=== PATIENT | female | born 1970 | race Two or more races ===

== ENCOUNTER 2019-02-07 15:53 | Inpatient (IN) | payer OTHER ==
[~2019-02-07] VITALS: Ht 170.2 cm; Wt 5.0 kg
[~2019-02-07 15:53] MED LIST: CODE1TAB37 PO
--- NOTE | 2019-02-07 16:09 | NUR ---
PTE INIDCA QUE TIENE DOLOR DE DIVERTICULOSIS YA QUE A SENTIDO EL DOLOR ANTERIRORMENTE Y ES IGUAL. PTE REFIERE DOLOR HACE 5 BOURNE Y NO AGUANTA MAS. PTE ALERTA CONSCIENTE Y OREINTADA X3
--- NOTE | 2019-02-07 16:54 | NUR ---
PTE EVALUADA POR EL DR MAGALLON QUIEN [place]. MS HUTTON ORIENTA SOBRE EL MISMO, LO CUAL REFIERE ENTENDER, REALIZA PRUEBAS DE LABORATORIO Y ADMINISTRA MEDICAMENTOS JACKIE ORDEN MEDICA Y SIGUIENDO MEDIDAS ASEPTICAS.
--- NOTE | 2019-02-07 23:24 | NUR ---
SE RECIBE DE TURNO ANTERIOR. PACIENTE FEMENINA. ALERTA Y ORIENTADA EN SHAMAR ESFERAS. BUEN PATRON RESPIRATORIO. PIEL TIBIA AL TACTO. CANALIZACION PATENTE, YULISA DE EDEMA Y/O ENROJECIMIENTO RECIBIENDO D5W/0.45%NSS @ 150 ML/HR. PACIENTE EN ESPERA DE CONSULTA CON DR GEORGE. SE MANTIENE BAJO OBSERVACION POR CAMBIOS.
--- NOTE | 2019-02-08 07:10 | NUR ---
SE RECIBE PACIENTE DE TURNO ANTERIOR.EN CAMA CON LAS BAR[place] ELEVADAS ESTA ALERTA Y ORIENTADA.[place] POR FAMILIAR.AREA DE VENOPUNCION ESTA LIMPIA Y SECA,YULISA DE EDEMA. ES MANTENIDA CON CABEZERA A 45 GRADOS,TIMBRE ACCESIBLE Y EN OBSERVACION KARLIE POR CAMBIOS EN CONDICION.
== END 2019-02-13 20:14 | disposition home or self-care (01) | DRG 392 ==
LOC: ER 15:53 → SURH 02-08 09:05 → SEC-K 02-08 09:05 → SURH 02-08 10:45
PROVIDERS: ADMIT Internal Medicine
DX: K57.32 Diverticulitis of large intestine without perforation or abscess without bleeding (principal)

== ENCOUNTER 2019-05-18 12:50 | Inpatient (IN) | payer OTHER ==
[~2019-05-18] VITALS: Ht 170.2 cm; Wt 75.7 kg
[2019-05-27] MEDS ORDERED: PERCOCET 5-3251 EACH PO (11:17)
[2019-05-27] MEDS ORDERED: PRILOSEC OTC20 MG PO (11:17)
[2019-05-27] MEDS ORDERED: INTESTINEX680 M1 PO (11:17)
== END 2019-05-27 12:02 | disposition home or self-care (01) | DRG 331 ==
LOC: EDSTATUS 05-20 13:15 → ADM 05-20 13:15 → SURH 05-24 04:58 → SURG 05-24 04:58 → O/R 05-24 04:58 → SURH 05-24 10:30 → SURG 05-24 11:32 → SURH 05-24 13:15 → ADM 05-24 13:15 → SURH 05-25 15:59
PROVIDERS: ADMIT Surgery
PROC: 0DJD8ZZ Inspection of Lower Intestinal Tract, Via Natural or Artificial Opening Endoscopic (ICD-10-PCS; 2019-05-24)
PROC: 0DTN4ZZ Resection of Sigmoid Colon, Percutaneous Endoscopic Approach (ICD-10-PCS; principal; 2019-05-24 10:30)
DX: K57.32 Diverticulitis of large intestine without perforation or abscess without bleeding (principal)

== ENCOUNTER 2020-07-31 08:36 | Emergency (ER) | payer OTHER ==
[~2020-07-31] VITALS: Ht 172.7 cm; Wt 78.9 kg
[~2020-07-31 08:36] MED LIST changes: +INTESTINEX680 M1 PO; +PERCOCET 5-3251 EACH PO; +PRILOSEC OTC20 MG PO
[2020-07-31] MEDS ORDERED: KETO10TA2 PO (14:56)
[2020-07-31] MEDS ORDERED: PEPCID AC20 MG PO (14:56)
[2020-07-31] MEDS ORDERED: ONDANSETRON ODT4 MG SL (14:56)
[2020-07-31] MEDS ORDERED: PYRIDIUM DS200 MG PO (14:56)
== END 2020-07-31 15:13 ==
LOC: ER 08:36
DX: N20.1 Calculus of ureter (principal); R10.11 Right upper quadrant pain; R10.31 Right lower quadrant pain; Z20.822 Contact with and (suspected) exposure to COVID-19

== ENCOUNTER 2020-09-11 08:00 | Outpatient (CLI) | payer OTHER ==
[~2020-09-11 08:00] MED LIST changes: +KETO10TA2 PO; +ONDANSETRON ODT4 MG SL; +PEPCID AC20 MG PO; +PYRIDIUM DS200 MG PO
== END 2020-09-11 08:18 | disposition home or self-care (01) ==
LOC: SONOGRAMA 08:00
PROVIDERS: ATTEND Internal Medicine Gastroenterology
DX: N83.292 Other ovarian cyst, left side (principal); N83.291 Other ovarian cyst, right side; R10.11 Right upper quadrant pain; R10.84 Generalized abdominal pain

== ENCOUNTER 2021-06-12 07:28 | Emergency (ER) | payer OTHER ==
[~2021-06-12] VITALS: Ht 172.7 cm; Wt 78.5 kg
[2021-06-12] MEDS ORDERED: LEVSIN/SL0.125 MG PO (14:10)
[2021-06-12] MEDS ORDERED: PEPCID AC20 MG PO (14:10)
[2021-06-12] MEDS ORDERED: KETO10TA2 PO (14:10)
== END 2021-06-12 14:19 ==
LOC: ER
DX: K80.50 Calculus of bile duct without cholangitis or cholecystitis without obstruction (principal)

== ENCOUNTER 2022-06-06 10:09 | Emergency (ER) | payer OTHER ==
[~2022-06-06] VITALS: Ht 160 cm; Wt 68.0 kg
[~2022-06-06 10:09] MED LIST changes: +LEVSIN/SL0.125 MG PO
[2022-06-06] MEDS ORDERED: TAMS0.4C PO (14:32)
[2022-06-06] MEDS ORDERED: KETO10TA2 PO (14:32)
== END 2022-06-06 16:07 | disposition home or self-care (01) ==
LOC: ER 10:09
DX: N20.0 Calculus of kidney (principal); R11.10 Vomiting, unspecified